=== PATIENT | female | born 1985 | race Caucasian/White ===

== ENCOUNTER → 2021-06-04 | Outpatient (REF) | payer BC, OTHER ==
[~2021-06-04] MED LIST: PERC5TAB12 PO
[2021-06-04 19:35] LABS: AMORPHOUS SEDIMENT SMALL (NEGATIVE); BACTERIA, URINE AUTO NEGATIVE (NEGATIVE); MUCUS, URINE SMALL (NEGATIVE); RBC, URINE AUTO 1 /HPF (0-3); SQUAMOUS EPITHELIAL CELL UR AU 1 /HPF (0-6); WBC, URINE AUTO 2 /HPF (0-3)
== END ==
LOC: M SMT 17:27
PROVIDERS: ATTEND Specialist
DX: N89.8 Other specified noninflammatory disorders of vagina (principal); N39.498 Other specified urinary incontinence

== ENCOUNTER 2021-09-10 07:10 | Day surgery (SDC) | payer BC, OTHER ==
[~2021-09-10] VITALS: Ht 165.1 cm; Wt 87.0 kg
[~2021-09-10 07:10] MED LIST changes: +AMLO1TAB24 PO; +LIDOCAINE 1% MDV 20ML VIAL SQ PRN; +LR 1,000 ML IV ONE; +METO1TAB87 PO; +OMEP-173 PO; +TOPI100T9 PO; +TOPI50TA9; +VENL75CA47 PO; +ceFAZolin SOD 2 GM in IV 1 EA IV ONE
[2021-09-10] MEDS ORDERED: propofoL 200 MG/20 ML VIAL As Ordered ONE (08:31)
[2021-09-10] MEDS ORDERED: LIDOCAINE 2% 100MG/5ML SDV (FOR ANES.) As Ordered ONE (08:31)
[2021-09-10] MEDS ORDERED: dexameTHASONE 4 MG/ML 1ML VIAL (J1100 PER 1MG) As Ordered ONE (08:31)
[2021-09-10] MEDS ORDERED: ONDANSETRON 4MG/2ML VIAL As Ordered ONE (08:31)
[2021-09-10] MEDS ORDERED: ACETAMINOPHEN 1000MG 100ML IV BTL (OFIRMEV) (J0131 PER 10MG) As Ordered ONE (08:31)
[2021-09-10] MEDS ORDERED: fentaNYL 100 MCG/2 ML INJECTION As Ordered ONE (08:32)
[2021-09-10] MEDS ORDERED: MIDAZOLAM INJ 2MG/2ML VIAL (J2250 PER 1MG) As Ordered ONE (08:32)
[2021-09-10] MEDS ORDERED: LIDOCAINE W/EPINEPHRINE 1% 20ML VIAL As Ordered ONE (09:08)
[2021-09-10] MEDS ORDERED: LIDOCAINE 5% OINT 30GM TUBE As Ordered ONE (09:22)
[2021-09-10] MEDS ORDERED: HYDR-3713 PO (10:49)
[2021-09-10] MEDS ORDERED: BACT800T5 PO (10:49)
[2021-09-10] MEDS ORDERED: oxyCODONE 5MG TAB PO PRN (10:55)
[2021-09-10] MEDS ORDERED: LR 1,000 ML IV SCH ×2 (10:55→11:00)
[2021-09-10] MEDS ORDERED: ONDANSETRON 4MG/2ML VIAL IV PRN (10:55)
[2021-09-10] MEDS ORDERED: HYDROMORPHONE HCL 0.5 MG/ 0.5 ML SYRINGE (J1170 PER 1) IV PRN (10:55)
[2021-09-10] MEDS ORDERED: fentaNYL 100 MCG/2 ML INJECTION IV PRN (10:55)
[2021-09-10 12:25] VITALS: BP 98/66
== END 2021-09-10 12:29 | disposition home or self-care (01) ==
LOC: M SDC 07:10
PROVIDERS: ATTEND Urology
DX: N39.3 Stress incontinence (female) (male) (principal); N93.9 Abnormal uterine and vaginal bleeding, unspecified; R00.0 Tachycardia, unspecified; I10 Essential (primary) hypertension; F41.8 Other specified anxiety disorders; G47.33 Obstructive sleep apnea (adult) (pediatric); J45.990 Exercise induced bronchospasm; F17.210 Nicotine dependence, cigarettes, uncomplicated; Z88.0 Allergy status to penicillin; Z79.899 Other long term (current) drug therapy
CPT/HCPCS: 57288; C1771; J0131; J0690; J1100; J2250; J2405; J3010